=== PATIENT | male | born 1980 | race African-American/Black ===

== ENCOUNTER 2017-09-28 23:26 | Inpatient (IN) | payer BC, OTHER ==
[~2017-09-28] VITALS: Ht 177.8 cm; Wt 90.0 kg
[2017-09-29] MEDS: SODIUM CHLORIDE 0.9% 1,000 ML IV SCH ×3 (00:16→16:38)
[2017-09-29] MEDS ORDERED: CEFTRIAXONE PMX 1GM/50ML 50 ML ONE (00:17)
[2017-09-29] MEDS ORDERED: ONDANSETRON 2MG/ML, 2ML IVPush PRN (00:30)
[2017-09-29] MEDS ORDERED: VANCOMYCIN PER PHARMACY MC PRN (00:30)
[2017-09-29] MEDS ORDERED: hydrALAzine 20 MG/ML, 1ML IVPush PRN (00:30)
[2017-09-29] MEDS ORDERED: SODIUM CHLORIDE FLUSH 10ML SYR IVF ONE (00:30)
[2017-09-29] MEDS: AZITHROMYCIN 500 MG in SODIUM CHLORIDE 0.9% 250 ML IV SCH (00:30)
[2017-09-29] MEDS ORDERED: CEFTRIAXONE PMX 1GM/50ML 50 ML IVPB ONE (00:30)
[2017-09-29] MEDS: ENOXAPARIN 40 MG/0.4 ML SQ SCH (00:30)
[2017-09-29] MEDS: CEFTRIAXONE PMX 1GM/50ML 50 ML IV SCH ×2 (00:30→23:44)
[2017-09-29 00:42] LABS: MEAN CORPUSCULAR HEMOGLOBIN 31.3 pg (27.5-34.5); MEAN PLATELET VOLUME 7.3 fL (7.4-10.4); PLATELET COUNT 312 x10^3/uL (130-400); RED BLOOD COUNT 3.79 x10^6/uL (4.38-5.82)
[2017-09-29 00:47] LABS: ALBUMIN 2.3 g/dL (3.4-5.0); ANION GAP 8 mmol/L (5-15); CALCIUM 8.2 mg/dL (8.5-10.1); CHLORIDE 107 mmol/L (98-107); CREATININE 1.03 mg/dL (0.7-1.3)
[2017-09-29 00:56] LABS: MD YES
[2017-09-29 01:05] LABS: EOS#(MANUAL) 0.16 x10^3/uL (0.0-0.4); EOS% (MANUAL) 1 % (1-7); LYMPH#(MANUAL) 2.61 x10^3/uL (1-3.4); LYMPHS% (MANUAL) 16 % (22-44); MONOS#(MANUAL) 0.49 x10^3/uL (0.3-2.7); MONOS% (MANUAL) 3 % (2-9); SEG#(MANUAL) 13.04 x10^3/uL (1.8-6.8); SEGS% (MANUAL) 80 % (42-75)
[2017-09-29 01:06] LABS: <PLATELET ESTIMATE> ADEQUATE; <PLT MORPHOLOGY> NORMAL PLT MORPH; <RBC MORPHOLOGY> NORMAL
[2017-09-29] MEDS ORDERED: ENOXAPARIN 40 MG/0.4 ML ONE (01:14)
[2017-09-29 03:30] VITALS: BP 109/69
[2017-09-29] MEDS ORDERED: PHARMACOKINETIC MONITORING MC PRN (04:00)
[2017-09-29] MEDS ORDERED: VANCOMYCIN 1,900 MG in SODIUM CHLORIDE 0.9% 250 ML IV SCH (04:30)
[2017-09-29] MEDS: ACETAMINOPHEN 325 MG TABLET PO PRN ×2 (05:45→17:02)
[2017-09-29] MEDS: GUAIFENESIN/DM 200-20MG, 10ML UDC PO PRN (05:45)
[2017-09-29 05:57] LABS: BASOPHILS # (AUTO) 0.03 x10^3/uL (0-0.1); BASOPHILS % (AUTO) 0 % (0-1); EOSINOPHILS # (AUTO) 0.08 x10^3/uL (0-0.4); EOSINOPHILS % (AUTO) 1 % (1-7); LYMPHOCYTES % (AUTO) 9 % (22-44); MD NO; MEAN CORPUSCULAR HEMOGLOBIN 31.2 pg (27.5-34.5); MEAN CORPUSCULAR HGB CONC 34.2 g/dL (33.2-36.2); MEAN CORPUSCULAR VOLUME 91.1 fL (81-97); MEAN PLATELET VOLUME 7.1 fL (7.4-10.4); MONOCYTES # (AUTO) 1.07 x10^3/uL (0.2-0.8); MONOCYTES % (AUTO) 8 % (2-9); NEUTROPHILS # (AUTO) 10.98 x10^3/uL (1.8-6.8); NEUTROPHILS % (AUTO) 82 % (42-75); PLATELET COUNT 305 x10^3/uL (130-400); RED BLOOD COUNT 3.71 x10^6/uL (4.38-5.82); RED CELL DISTRIBUTION WIDTH 13.2 % (9.4-14.8)
[2017-09-29 06:04] LABS: CHLORIDE 109 mmol/L (98-107)
[2017-09-29 06:08] LABS: ANION GAP 8 mmol/L (5-15); CALCIUM 8.4 mg/dL (8.5-10.1); CREATININE 0.87 mg/dL (0.7-1.3)
[2017-09-29 07:18] VITALS: BP 109/61
[2017-09-29 13:07] VITALS: BP 118/64
[2017-09-29] MEDS: VANCOMYCIN 1,900 MG in SODIUM CHLORIDE 0.9% 250 ML IV SCH (20:40)
[2017-09-29 23:33] VITALS: BP 105/70
[2017-09-30] MEDS: ENOXAPARIN 40 MG/0.4 ML SQ SCH (00:37)
[2017-09-30] MEDS: AZITHROMYCIN 500 MG in SODIUM CHLORIDE 0.9% 250 ML IV SCH (00:37)
[2017-09-30] MEDS: SODIUM CHLORIDE 0.9% 1,000 ML IV SCH ×2 (00:37→12:00)
[2017-09-30 05:23] VITALS: BP 128/82
[2017-09-30 07:30] VITALS: BP 125/78
[2017-09-30] MEDS: VANCOMYCIN 1,900 MG in SODIUM CHLORIDE 0.9% 250 ML IV SCH (08:00)
[2017-09-30] MEDS: GUAIFENESIN/DM 200-20MG, 10ML UDC PO PRN ×2 (13:58→20:10)
[2017-09-30 14:05] VITALS: BP 124/77
[2017-09-30] MEDS: AMPICILLIN/SULBACTAM 3 GM in SODIUM CHLORIDE 0.9% 100 ML IV SCH (19:02)
[2017-09-30 19:10] VITALS: BP 126/76
[2017-10-01] MEDS: AMPICILLIN/SULBACTAM 3 GM in SODIUM CHLORIDE 0.9% 100 ML IV SCH ×4 (01:11→18:51)
[2017-10-01] MEDS: ENOXAPARIN 40 MG/0.4 ML SQ SCH (01:11)
[2017-10-01 02:24] VITALS: BP 123/73
[2017-10-01 06:32] VITALS: BP 124/67
[2017-10-01 07:14] LABS: BASOPHILS # (AUTO) 0.32 x10^3/uL (0-0.1); BASOPHILS % (AUTO) 3 % (0-1); EOSINOPHILS # (AUTO) 0.08 x10^3/uL (0-0.4); EOSINOPHILS % (AUTO) 1 % (1-7); LYMPHOCYTES # (AUTO) 1.42 x10^3/uL (1-3.4); LYMPHOCYTES % (AUTO) 15 % (22-44); MD NO; MEAN CORPUSCULAR HEMOGLOBIN 31.3 pg (27.5-34.5); MEAN CORPUSCULAR HGB CONC 34.5 g/dL (33.2-36.2); MEAN CORPUSCULAR VOLUME 90.8 fL (81-97); MEAN PLATELET VOLUME 7.1 fL (7.4-10.4); MONOCYTES # (AUTO) 0.88 x10^3/uL (0.2-0.8); MONOCYTES % (AUTO) 9 % (2-9); NEUTROPHILS # (AUTO) 6.91 x10^3/uL (1.8-6.8); NEUTROPHILS % (AUTO) 72 % (42-75); PLATELET COUNT 406 x10^3/uL (130-400); RED BLOOD COUNT 3.58 x10^6/uL (4.38-5.82); RED CELL DISTRIBUTION WIDTH 12.9 % (9.4-14.8)
[2017-10-01 12:06] VITALS: BP 128/80
[2017-10-01 21:57] VITALS: BP 130/83
[2017-10-02] MEDS: ENOXAPARIN 40 MG/0.4 ML SQ SCH (00:30)
[2017-10-02] MEDS: AMPICILLIN/SULBACTAM 3 GM in SODIUM CHLORIDE 0.9% 100 ML IV SCH ×3 (00:56→12:57)
[2017-10-02 02:52] VITALS: BP 132/78
[2017-10-02 07:03] VITALS: BP 121/68
[2017-10-02] MEDS ORDERED: GUAIFENESIN ER 600 MG TABLET PO SCH (09:00)
[2017-10-02] MEDS: ACETAMINOPHEN 325 MG TABLET PO PRN (09:29)
[2017-10-02 14:24] VITALS: BP 120/72
[2017-10-02] MEDS ORDERED: GUAI600T31 PO (14:30)
[2017-10-02] MEDS ORDERED: ACET325T14 PO (14:30)
[2017-10-02] MEDS ORDERED: CEFD300C37 PO (14:30)
[2017-10-02] MEDS ORDERED: PNEUMOCOCCAL 23 VACCINE IM-VACC ONE (15:30)
[2017-10-02] MEDS ORDERED: FLU VACC QS2017-18 (36MOS+) UP/PF 0.5 ML IM-VACC ONE (15:30)
[2017-10-02 16:28] VITALS: BP 133/76
== END 2017-10-02 16:55 | disposition home or self-care (01) | DRG 871 ==
LOC: ED 23:45 → SUATTDRO 09-29 00:15 → EDIP 09-29 00:50 → 4NOR 09-29 03:15
PROVIDERS: ADMIT Hospitalist; ATTEND Hospitalist
DX: A41.9 Sepsis, unspecified organism (principal); J15.4 Pneumonia due to other streptococci; E44.1 Mild protein-calorie malnutrition; D64.9 Anemia, unspecified; B95.5 Unspecified streptococcus as the cause of diseases classified elsewhere; B96.89 Other specified bacterial agents as the cause of diseases classified elsewhere; E83.51 Hypocalcemia; Z68.28 Body mass index [BMI] 28.0-28.9, adult; F17.200 Nicotine dependence, unspecified, uncomplicated; R09.1 Pleurisy; R65.20 Severe sepsis without septic shock; Z86.61 Personal history of infections of the central nervous system; Z23 Encounter for immunization
CPT/HCPCS: 36415; 80048; 82040; 83735; 84100; 85025; 87040; 90686; 90732; 99285; J0295; J0456; J0696; J1650; J3370; J7030; J7050

== ENCOUNTER 2019-03-12 22:33 | Emergency (ER) | payer BC, OTHER ==
[~2019-03-12] VITALS: Ht 175.3 cm; Wt 89.8 kg
[2019-03-12 22:45] VITALS: BP 128/73
== END 2019-03-12 23:24 | disposition home or self-care (01) ==
LOC: ED 23:16
DX: K08.89 Other specified disorders of teeth and supporting structures (principal); R51 Headache; Z72.9 Problem related to lifestyle, unspecified; Z75.9 Unspecified problem related to medical facilities and other health care; Z91.14 Patient's other noncompliance with medication regimen
CPT/HCPCS: 64400; 99284; J3490